=== PATIENT | male | born 1975 | race Two or more races ===

== ENCOUNTER → 2024-05-30 | Outpatient (CLI) | payer MEDICAID, SELFPAY ==
--- NOTE | 2024-05-30 10:30 | XR_ITS ---
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
== END | disposition home or self-care (01) ==
PROVIDERS: PCP Colon & Rectal Surgery; Referring Provider Colon & Rectal Surgery; Visit Provider Colon & Rectal Surgery
DX: K60.30 Anal fistula, unspecified (principal)
CPT/HCPCS: 72196; A9579